=== PATIENT | female | born 1970 | race Two or more races ===

== ENCOUNTER 2024-09-27 06:40 | Day surgery (SDC) | payer MEDICAID, SELFPAY ==
[2024-09-27] VITALS (10 sets, daily range): BP systolic 113–172; BP diastolic 73–114; PULSE 82–100; RESP 15–28; TEMP 36.5–36.7; O2SAT 98–100; BMI 27.8
[2024-09-27] MEDS: DiphenhydrAMINE INJ 50 MG/ML VIAL 25 MG IV (07:40)
[2024-09-27] MEDS: MIDAZOLAM INJ 1 MG/ML VIAL 2 ML (ASD USE ONLY) 2 MG IV (07:41)
[2024-09-27] MEDS: fentaNYL CIT INJ 50 mCg/ML AMP 2ML (ASD USE ONLY) IV (07:41)
== END 2024-09-27 08:30 | disposition home or self-care (01) ==
PROVIDERS: PCP Physician Assistant; Referring Provider Surgery; Visit Provider Surgery
PROC: 0DBE8ZX Excision of Large Intestine, Via Natural or Artificial Opening Endoscopic, Diagnostic (ICD-10-PCS; CPT 45380; principal; 2024-09-27 07:30)
DX: Z12.11 Encounter for screening for malignant neoplasm of colon (principal); K62.89 Other specified diseases of anus and rectum; K64.1 Second degree hemorrhoids; K57.30 Diverticulosis of large intestine without perforation or abscess without bleeding
CPT/HCPCS: 45378; 81025; J1200; J2250; J3010